=== PATIENT | female | born 1980 | race Caucasian/White ===

== ENCOUNTER 2023-06-26 09:07 | Outpatient (CLI) | payer OTHER, SELFPAY | END 2023-06-26 09:08 | disposition home or self-care (01) | LOC: NFLDREF 06-28 15:25 | PROVIDERS: Visit Provider Emergency Medicine | DX: Z00.00 Encounter for general adult medical examination without abnormal findings (principal); Z13.6 Encounter for screening for cardiovascular disorders; Z13.29 Encounter for screening for other suspected endocrine disorder | CPT/HCPCS: 80048; 80061; 84443 ==

== ENCOUNTER 2023-09-25 15:02 | Outpatient (CLI) | payer OTHER, SELFPAY ==
--- NOTE | 2023-09-25 15:20 | CRLHL7_ITS ---
For Patients: As a result of the Century Cures Act, medical imaging exams and procedure reports are released immediately into your electronic medical record. You may view this report before your referring provider. If you have questions, please contact your health care provider. BILATERAL SCREENING MAMMOGRAM WITH COMPUTER-AIDED DETECTION AND TOMOSYNTHESIS TECHNIQUE: CC and MLO views were obtained. These mammographic images have been obtained using full-field digital technique. These mammographic images were interpreted with the benefit of computer-aided detection. Breast Tomosynthesis was used in this interpretation. COMPARISON FILM: 09/08/21, 09/02/21, 05/31/18. FINDINGS: There are scattered areas of fibroglandular density IMPRESSION: There is no radiographic evidence for malignancy. ASSESSMENT: BI-RADS Category 1: Negative RECOMMENDATION: Routine screening mammogram in 1 year. A lay language report of this examination will be provided to the patient. Dwight Donis M.D. Diagnostic Radiologist [email or web address] MAHI/Dictated by: Dwight Donis MD @ 09/26/2023 12:37:00 PM (Electronically Signed)
== END 2023-09-25 15:03 | disposition home or self-care (01) ==
LOC: MAMMO 15:04
PROVIDERS: Visit Provider Emergency Medicine
DX: Z12.31 Encounter for screening mammogram for malignant neoplasm of breast (principal)
CPT/HCPCS: 77063; 77067

== ENCOUNTER 2025-09-10 13:29 | Outpatient (CLI) | payer OTHER, SELFPAY ==
[2025-09-10 23:58] LABS: Chlamydia DNA Amplified* NOT DETECTED (No Detected); GC DNA Amplified* NOT DETECTED (No Detected)
[2025-09-13 02:49] LABS: HPV Source Cervix
[2025-09-16 09:30] LABS: Pap Test Digital Imaging Done
== END 2025-09-10 13:30 | disposition home or self-care (01) ==
PROVIDERS: Visit Provider Physician Assistant Medical
DX: Z00.00 Encounter for general adult medical examination without abnormal findings (principal)
CPT/HCPCS: 87491; 87591; 87624; 87625; 88141; 88142; 88175

== ENCOUNTER 2025-09-16 09:56 | Outpatient (CLI) | payer OTHER, SELFPAY | END 2025-09-16 09:57 | disposition home or self-care (01) | LOC: NFLDREF 09-19 12:35 | PROVIDERS: PCP Physician Assistant Medical; Referring Provider Physician Assistant Medical; Visit Provider Physician Assistant Medical | DX: Z00.00 Encounter for general adult medical examination without abnormal findings (principal) | CPT/HCPCS: 80053; 80061; 82670; 83001; 84144; 84403; 84443 ==